=== PATIENT | female | born 1965 | race African-American/Black ===

== ENCOUNTER 2017-12-26 20:56 | Emergency (ER) | payer OTHER ==
--- NOTE | 2017-12-26 21:09 | PDOC ---
Rapid Medical Evaluation Chief Complaint: Injury Time Seen by Provider: 12/26/17 21:06 Medical Evaluation: 12/26/17 21:07 twisted right ankle aT 5 PM NOW WITH pain and swelling O: patient alert ox3, Mild right ankle swelling limited rom no deformity P_: xray patient to ER for further management of cARE. Discharge Disposition - Referrals Referrals: Katiuska Restrepo [Primary Care Provider] - - Patient Instructions - Post Discharge Activity
[2017-12-26 21:10] VITALS: BP 115/53; PULSE 68; TEMP 98.4; BMI 20.6
--- NOTE | 2017-12-26 21:30 | PDOC ---
History of Present Illness - General Stated Complaint: LEG INJURY Time Seen by Provider: 12/26/17 21:06 History Source: Patient Exam Limitations: No Limitations - History of Present Illness Initial Comments: 12/26/17 21:28 inversion injury to right ankle - was walking and stumbled in pothole this afternoon. C/O pain and swelling to ankle. Occurred: reports: this afternoon Severity: reports: moderate Pain Location: reports: lower extremity (right ankle ) Loss of Consciousness: no loss of consciousness Associated Symptoms (Fall): denies symptoms Past History - Travel Traveled outside of the country in the last 30 days: No Close contact w/someone who was outside of country & ill: No - Past Medical History Allergies/Adverse Reactions: Allergies Allergy/AdvReac Type Severity Reaction Status Date / Time No Known Allergies Allergy Verified 12/26/17 21:10 Home Medications: Ambulatory Orders Naproxen [Naprosyn -] 500 mg PO TID #30 tablet 12/26/17 COPD: No Other medical history: vertigo - Suicide/Smoking/Psychosocial Hx Smoking History: Never smoked Have you smoked in the past 12 months: No Information on smoking cessation initiated: No Hx Alcohol Use: No Drug/Substance Use Hx: No Substance Use Type: None Review of Systems - Review of Systems Able to Perform ROS?: Yes Is the patient limited [place] proficient: Yes Constitutional: Yes: See HPI. No: Symptoms Reported HEENTM: Yes: See HPI. No: Symptoms Reported Musculoskeletal: Yes: Symptoms Reported, See HPI, Joint Pain Integumentary: Yes: Symptoms Reported, See HPI, Bruising Neurological: Yes: Symptoms reported All Other Systems: Reviewed and Negative *Physical Exam - Vital Signs Last Vital Signs Temp Pulse Resp BP Pulse Ox 98.4 F 68 17 115/53 99 12/26/17 21:07 12/26/17 21:07 12/26/17 21:07 12/26/17 21:07 12/26/17 21:07 - Physical Exam General Appearance: Yes: Nourished, Appropriately Dressed, Apparent Distress HEENT: positive: FILIBERTO, Normal ENT Inspection, Normal Voice, TMs Normal, Pharynx Normal Neck: positive: Supple. negative: Tender Respiratory/Chest: positive: Lungs Clear Cardiovascular: positive: Regular Rhythm Gastrointestinal/Abdominal: positive: Soft. negative: Tender Musculoskeletal: positive: Normal Inspection Extremity: positive: Normal Capillary Refill, Normal Range of Motion. 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 Will follow-up with Orth O as needed. *DC/Admit/Observation/Transfer Diagnosis at time of Disposition: Right ankle sprain Qualifiers: Encounter type: initial encounter Involved ligament of ankle: unspecified ligament Qualified Code(s): S93.401A - Sprain of unspecified ligament of right ankle, initial encounter - Discharge Dispostion Disposition: HOME Condition at time of disposition: Stable Admit: No - Prescriptions Prescriptions: Naproxen [Naprosyn -] 500 mg PO TID #30 tablet - Referrals Referrals: Katiuska Restrepo [Primary Care Provider] - Chato Lee MD [Staff Physician] - - Patient Instructions Printed Discharge Instructions: DI for Ankle Sprain Additional Instructions: Rest, ice to area on and off for 15 minutes 4-6 times a day Avoid heavy lifting or exercise until pain and swelling is resolved or until further directed Keep area highly elevated to reduce swelling Use splints/Home wrap as directed Followup with orthopedist in one to 2 days if not improving, if significantly improved may wait one week for followup with orthopedist May use ibuprofen 2-200 mg tablets every 6 hours as needed for pain - Post Discharge Activity
== END 2017-12-26 22:18 | disposition home or self-care (01) ==
LOC: JERFT 20:56
PROC: 2W3QX1Z Immobilization of Right Lower Leg using Splint (ICD-10-PCS; principal; 2017-12-26)
DX: S93.401A Sprain of unspecified ligament of right ankle, initial encounter (principal); X58.XXXA Exposure to other specified factors, initial encounter; Y93.89 Activity, other specified; Y92.410 Unspecified street and highway as the place of occurrence of the external cause
CPT/HCPCS: 73610-TC-RT-FY; 99281-25